=== PATIENT | male | born 1965 | race Caucasian/White ===

== ENCOUNTER → 2022-10-25 11:06 | Outpatient (BNVA) | payer OTHER, SELFPAY | PROVIDERS: Visit Provider Internal Medicine | DX: R76.8 Other specified abnormal immunological findings in serum (principal); M45.0 Ankylosing spondylitis of multiple sites in spine; L40.9 Psoriasis, unspecified; Z79.899 Other long term (current) drug therapy | CPT/HCPCS: 36415; 71046; 72202; 73120; 80053; 81003; 82550; 82607; 82784; 82955; 83516; 83735; 84100; 84425; 84443; 85025; 85651; 86140; 86160; 86162; 86200; 86235; 86255; 86376; 86431; 86480; 86618; 86666; 86704; 86757; 86803; 86812; 87340; 87806 ==

== ENCOUNTER → 2022-11-22 11:37 | Outpatient (BNVA) | payer OTHER, SELFPAY | PROVIDERS: Visit Provider Internal Medicine | DX: M19.012 Primary osteoarthritis, left shoulder (principal); M19.011 Primary osteoarthritis, right shoulder; R76.8 Other specified abnormal immunological findings in serum; R53.1 Weakness | CPT/HCPCS: 73030 ==